=== PATIENT | male | born 1990 | race Two or more races ===

== ENCOUNTER 2024-01-11 15:28 | Emergency (ER) | payer OTHER ==
[~2024-01-11] VITALS: Ht 182.9 cm; Wt 102.3 kg
[2024-01-11 15:36] VITALS: BP 146/59; PULSE 73; RESP 16; TEMP 98; O2SAT 100
== END 2024-01-11 16:53 | disposition home or self-care (01) ==
LOC: ER 15:29
DX: Z00.00 Encounter for general adult medical examination without abnormal findings (principal); Z77.21 Contact with and (suspected) exposure to potentially hazardous body fluids
CPT/HCPCS: 99281